=== PATIENT | female | born 1995 | race Caucasian/White ===

== ENCOUNTER 2019-03-07 05:35 | Inpatient (IN) | payer BC, MEDICAID ==
[~2019-03-07] VITALS: Ht 160 cm; Wt 83.0 kg
[2019-03-07] MEDS ORDERED: LR 1,000 ML IV SCH ×2 (05:53→07:38)
[2019-03-07 05:59] VITALS: BP_SYST 112
[2019-03-07] MEDS ORDERED: CEFAZOLIN 2 GM IVPB PREMIX 50 ML IV ONE (06:00)
[2019-03-07 06:14] LABS: BILIRUBIN,URINE NEGATIVE (NEGATIVE); BLOOD, URINE NEGATIVE (NEGATIVE); CLARITY/URINE CLOUDY (CLEAR); COLOR,URINE YELLOW (YELLOW); GLUCOSE,URINE NEGATIVE (NEGATIVE); KETONES,URINE NEGATIVE (NEGATIVE); LEUKOCYTE ESTERASE ,URINE 3+ (NEGATIVE); NITRITE, URINE NEGATIVE (NEGATIVE); PH,URINE 5.5 (5.0-8.0); PROTEIN URINE NEGATIVE (NEGATIVE); UROBILINOGEN,URINE 0.2 (0.2-1.0)
[2019-03-07 07:08] LABS: HEMATOCRIT 28.5 % (36-48); MEAN CORPUSCULAR HEMOGLOBIN 29 pg (27-31); MEAN CORPUSCULAR HGB CONC 34 % (32-36); MEAN CORPUSCULAR VOLUME 85 fL (79.0-98.0); PLATELET COUNT (AUTO) 200 K/uL (130-430); RED BLOOD CELL COUNT(AUTO) 3.34 MIL/uL (4.2-6.2); RED CELL DISTRIBUTION WIDTH 14.5 % (9.0-15.0); WHITE BLOOD COUNT (AUTO) 7.2 K/uL (4.8-10.8)
[2019-03-07 07:20] LABS: HEMOGLOBIN 9.7 g/dL (12.0-16.0)
[2019-03-07] MEDS ORDERED: OXYTOCIN/0.9 % SODIUM CHLORIDE 1,000 ML IV ONE (07:38)
[2019-03-07] MEDS ORDERED: MORPHINE SULFATE 10 MG/ML VIAL IVP PRN (07:45)
[2019-03-07] MEDS ORDERED: LANOLIN 7 GM OINT. TP PRN (07:45)
[2019-03-07] MEDS ORDERED: HYDROcodone/ACETAMIN 5-325 MG TAB (NORCO/ VICODIN) PO PRN (07:45)
[2019-03-07] MEDS ORDERED: ANUSOL 1 EA SUPP.RECT (PREPARATION H) RC PRN (07:45)
[2019-03-07 07:54] LABS: BACTERIA,URINE MANY /HPF (None Seen); MUCUS,URINE 1+ /LPF (None Seen); RBC,URINE 0-3 /HPF (0-3); WBC,URINE 50-80 /HPF (0-3)
[2019-03-07 07:59] LABS: ATYPICAL LYMPHOCYTES % 0 % (0-0); BAND % (MANUAL) 3 % (0-6); BASOPHILS % (MANUAL) 0 % (0-2); EOSINOPHILS % (MANUAL) 0 % (0-7); LYMPHOCYTES % (MANUAL) 22 % (20-46); MONOCYTES % (MANUAL) 12 % (0-11)
[2019-03-07] MEDS ORDERED: NALOXONE HCL 0.4 MG/ML AMP (NARCAN) IVP PRN ×2 (08:15)
[2019-03-07] MEDS ORDERED: DIPHENHYDRAMINE INJ 50 MG/ML VIAL IVP PRN (08:15)
[2019-03-07] MEDS ORDERED: KETOROLAC TROMETHAMINE 60 MG/2 ML VIAL IM PRN (08:15)
[2019-03-07] MEDS ORDERED: NALBUPHINE HCL 10 MG/ML AMP IVP PRN (08:15)
[2019-03-07] MEDS ORDERED: fentaNYL CITRATE/PF 100 MCG/2 ML AMP IVP PRN ×2 (08:15)
[2019-03-07] MEDS ORDERED: ONDANSETRON HCL 4 MG/2 ML VIAL IVP PRN (08:15)
[2019-03-07] MEDS ORDERED: MORPHINE SULFATE 10MG/10ML PF AMP SP SCH (08:15)
[2019-03-07] MEDS ORDERED: MORPHINE SULFATE 10MG/10ML PF AMP ONE (08:40)
[2019-03-07] MEDS ORDERED: KETOROLAC TROMETHAMINE 30 MG VIAL ONE (08:40)
[2019-03-07] MEDS ORDERED: LR 1,000 ML IV.SOLN IV ONE (08:40)
[2019-03-07] MEDS ORDERED: BUPIVACAINE /DEX PF 0.75% SPINAL 2 ML AMP INJ ONE (08:40)
[2019-03-07] MEDS ORDERED: NS IRRIG SOLN 1000 ML IR ONE (08:40)
[2019-03-07 08:57] VITALS: BP_SYST 102
[2019-03-07] MEDS ORDERED: fentaNYL CITRATE/PF 100 MCG/2 ML AMP ONE (09:02)
[2019-03-07] MEDS: SIMETHICONE 80 MG TAB.CHEW PO PRN (17:43)
[2019-03-08 07:50] LABS: BASOPHILS % (AUTO) 0.5 % (0.0-2.0); EOSINOPHILS # (AUTO) 0.1 K/uL (0.0-0.4); EOSINOPHILS % (AUTO) 0.7 % (0.0-4.0); HEMATOCRIT 25.6 % (36-48); HEMOGLOBIN 8.8 g/dL (12.0-16.0); LYMPHOCYTES # (AUTO) 1.4 K/uL (1.0-5.5); LYMPHOCYTES % (AUTO) 17.9 % (20.5-51.5); MEAN CORPUSCULAR HEMOGLOBIN 30 pg (27-31); MEAN CORPUSCULAR HGB CONC 34 % (32-36); MEAN CORPUSCULAR VOLUME 86 fL (79.0-98.0); MONOCYTES # (AUTO) 0.4 K/uL (0.0-1.0); MONOCYTES % (AUTO) 4.9 % (1.7-9.3); PLATELET COUNT (AUTO) 203 K/uL (130-430); RED BLOOD CELL COUNT(AUTO) 2.99 MIL/uL (4.2-6.2); RED CELL DISTRIBUTION WIDTH 14.2 % (9.0-15.0); WHITE BLOOD COUNT (AUTO) 7.9 K/uL (4.8-10.8)
[2019-03-08] MEDS: DOCUSATE SODIUM 100 MG CAPSULE PO PRN (09:00)
[2019-03-08] MEDS: SIMETHICONE 80 MG TAB.CHEW PO PRN ×2 (09:01→16:00)
[2019-03-08] MEDS: HYDROcodone/ACETAMIN 5-325 MG TAB (NORCO/ VICODIN) PO PRN ×3 (09:06→21:50)
[2019-03-08] MEDS: IBUPROFEN 600 MG TABLET PO PRN ×2 (12:20→17:51)
[2019-03-09] MEDS: HYDROcodone/ACETAMIN 5-325 MG TAB (NORCO/ VICODIN) PO PRN ×3 (03:00→18:11)
[2019-03-09] MEDS: IBUPROFEN 600 MG TABLET PO PRN ×4 (06:00→17:36)
[2019-03-09] MEDS: DOCUSATE SODIUM 100 MG CAPSULE PO PRN ×2 (09:25→21:27)
[2019-03-09] MEDS: SIMETHICONE 80 MG TAB.CHEW PO PRN ×3 (09:25→21:28)
[2019-03-10] MEDS: IBUPROFEN 600 MG TABLET PO PRN ×3 (00:14→12:40)
[2019-03-10] MEDS: HYDROcodone/ACETAMIN 5-325 MG TAB (NORCO/ VICODIN) PO PRN ×2 (02:29→12:40)
[2019-03-10] MEDS: DOCUSATE SODIUM 100 MG CAPSULE PO PRN (08:32)
== END 2019-03-10 13:15 | disposition home or self-care (01) | DRG 788 ==
LOC: SPU 05:35
PROVIDERS: ADMIT Obstetrics & Gynecology; ATTEND Obstetrics & Gynecology
PROC: 10D00Z1 Extraction of Products of Conception, Low, Open Approach (ICD-10-PCS; principal; 2019-03-07 07:30)
DX: O34.211 Maternal care for low transverse scar from previous cesarean delivery (principal); Z37.0 Single live birth; Z3A.39 39 weeks gestation of pregnancy
CPT/HCPCS: 36415; 81000-TC; 85007; 85025; 85027; 86592; 86886; 86900; 86901; 87086; J0690; J1200; J1885; J2274; J2590; J3010; J3490; J7120

== ENCOUNTER 2021-10-08 10:44 | Emergency (ER) | payer BC, MEDICAID ==
[~2021-10-08] VITALS: Ht 160 cm; Wt 86.2 kg
[2021-10-08 11:00] VITALS: BP_SYST 149
--- NOTE | 2021-10-08 11:00 | NUR ---
Patient to ER bed 5 to gown for evaluation. Side rails up. Report given to
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
--- NOTE | 2021-10-08 11:10 | NUR ---
ED MD AT BEDSIDE
--- NOTE | 2021-10-08 11:15 | NUR ---
PT IS STABLE, NAD, VSS, AWAITING TO BE FURTHER ASSESSED BY ED MD
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
--- NOTE | 2021-10-08 11:42 | NUR ---
ER at bedside examining patient.
[2021-10-08] MEDS ORDERED: HYDROcodone/ACETAMIN 10-325 MG TAB PO ONE (12:00)
--- NOTE | 2021-10-08 12:35 | NUR ---
PT IN CT
[2021-10-08] MEDS ORDERED: IBUP-1969 PO (13:10)
[2021-10-08] MEDS ORDERED: METH-634 PO (13:10)
[2021-10-08 13:21] VITALS: BP_SYST 116
--- NOTE | 2021-10-08 13:22 | NUR ---
Patient given written and verbal discharge instructions and verbalizes understanding. ER discussed with patient the results and treatment provided. Patient in stable condition. ID arm band removed. Rx of Ibuprofen and robaxin given. Patient educated on pain management and to follow up with PMD. Pain Scale 1. Opportunity for questions provided and answered. Medication side effect fact sheet provided.
== END 2021-10-08 13:22 | disposition home or self-care (01) ==
LOC: SED 10:44
DX: S00.11XA Contusion of right eyelid and periocular area, initial encounter (principal); S09.90XA Unspecified injury of head, initial encounter; Y04.8XXA Assault by other bodily force, initial encounter; Y93.89 Activity, other specified; Y92.89 Other specified places as the place of occurrence of the external cause; Y99.8 Other external cause status
CPT/HCPCS: 70450-TC; 70486-TC; 72125-TC; 76376; 81025; 99284